=== PATIENT | male | born 1985 | race Hispanic/Latino ===

== ENCOUNTER 2018-10-19 11:06 | Emergency (ER) | payer OTHER ==
[2018-10-19 11:46] VITALS: BMI 29.7
[2018-10-19 11:47] VITALS: BP 114/76; PULSE 82; RESP 20; TEMP 97.9
--- NOTE | 2018-10-19 12:08 | ED PDOC ---
Lower Extremity Pain/Injury Time Seen by Provider: 10/19/18 11:32 Chief Complaint (Nursing): Lower Extremity Problem/Injury Chief Complaint (Provider): Lower Extremity Problem/Injury History Per: Patient Onset/Duration Of Symptoms: Days (3) Current Symptoms Are (Timing): Still Present Additional Complaint(s): 33 y/o male present to the ED complaining of left upper thigh pain since 3 days ago. Patient states he exercise a lot and drove for 2 hours then started feeling pain. He took over the counter medication with no relief. Patient has chronic back pain from hernia disc. 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 PMD: none provided Past Medical History Reviewed: Historical Data, Nursing Documentation, Vital Signs Vital Signs: Last Vital Signs Temp 97.9 F 10/19/18 11:46 Pulse 82 10/19/18 11:46 Resp 20 10/19/18 11:46 BP 114/76 10/19/18 11:46 Pulse Ox 98 10/19/18 11:46 - Medical History PMH: No Chronic Diseases - Surgical History Surgical History: No Surg Hx - Family History Family History: States: No Known Family Hx - Home Medications Home Medications: Ambulatory Orders Medication Instructions Recorded Cyclobenzaprine [Cyclobenzaprine 10 mg PO TID #15 tab 10/19/18 HCl] Naproxen 500 mg PO BID #20 tab 10/19/18 - Allergies Allergies/Adverse Reactions: Allergies Allergy/AdvReac Type Severity Reaction Status Date / Time No Known Allergies Allergy Verified 10/19/18 11:33 Review of Systems ROS Statement: Except As Marked, All Systems Reviewed And Found Negative Musculoskeletal: Positive for: Other (uopper left thigh pain ) Physical Exam - Reviewed Nursing Documentation Reviewed: Yes Vital Signs Reviewed: Yes - Physical Exam Appears: Positive for: Well, Non-toxic, No Acute Distress Head Exam: Positive for: ATRAUMATIC, NORMOCEPHALIC Skin: Positive for: Normal Color, Warm, Dry Eye Exam: Positive for: EOMI, Normal appearance, PERRL ENT: Positive for: Normal ENT Inspection Neck: Positive for: Normal, Painless ROM Cardiovascular/Chest: Positive for: Regular Rate, Rhythm. Negative for: Murmur Respiratory: Positive for: CNT, Normal Breath Sounds Gastrointestinal/Abdominal: Positive for: Normal Exam, Soft Back: Positive for: Normal Inspection, Other (point tenderness lower back ) Extremity: Positive for: Normal ROM, Other (No redness and no ecchymosis. ). Negative for: Tenderness, Deformity, Swelling Neurological/Psych: Positive for: Awake, Alert, Normal Tone, Oriented (x3). Negative for: Motor/Sensory Deficits - ECG O2 Sat by Pulse Oximetry: 98 - Progress Re-evaluation Time: 12:52 Condition: Re-examined, Improved Medical Decision Making Medical Decision Making: Time:1146 Initial Impression: Left thigh pain Initial Plan:Rule out DVT and muscle spasm. Pt will be refer to otherpedic and outpatient MRI. -US Scribe Attestation: Documented by Demetria Gerard, acting as a scribe for Rekha Prajapati. Provider Scribe Attestation: All medical record entries made by the Scribe were at my direction and personally dictated by me. I have reviewed the chart and agree that the record accurately reflects my personal performance of the history, physical exam, medical decision making, and the department course for this patient. I have also personally directed, reviewed, and agree with the discharge instructions and disposition. 1252 FINDINGS: 2-D, color and duplex Doppler analysis of the lower extremity venous circulation using routine protocol from the femoral veins through the popliteal veins. Venous compressibility: Normal. Flow and augmentation patterns: Normal. Visualized veins upper third of calf: Normal. Dominguez cyst: None. IMPRESSION: No sonographic or Doppler evidence for DVT in left lower extremity. Disposition - Clinical Impression Clinical Impression: Leg sprain - Patient ED Disposition Is Patient to be Admitted: No Doctor Will See Patient In The: Office Counseled Patient/Family Regarding: Studies Performed, Diagnosis, Need For Followup - Disposition Referrals: Jonn Bustamante MD [Staff Provider] - Disposition: Routine/Home Disposition Time: 12:54 Condition: GOOD Additional Instructions: Follow up with orthopedist for outpatient MRI within 1 week. REMINGTON DYER, thank you for letting us take care of you today. Your provider was Rekha Prajapati MD and you were treated for HIP PAIN. The emergency medical care you received today was directed at your acute symptoms. If you were prescribed any medication, please fill it and take as directed. It may take several days for your symptoms to resolve. Return to the Emergency Department if your symptoms worsen, do not improve, or if you have any other problems. Please contact your doctor or call one of the physicians/clinics you have been referred to that are listed on the Patient Visit Information form that is included in your discharge packet. Bring any paperwork you were given at discharge with you along with any medications you are taking to your follow up visit. Our treatment cannot replace ongoing medical care by a primary care provider outside of the emergency department. Thank you for allowing the [facility] team to be part of your care today. If you had an X-Ray or CT scan: A Radiologist will review the ED reading if any change in treatment is needed we will contact you. Prescriptions: Cyclobenzaprine [Cyclobenzaprine HCl] 10 mg PO TID #15 tab Naproxen 500 mg PO BID #20 tab Instructions: Muscle Strain (DC) Forms: [employer] ([place]ian), [facility] ED School/Work Excuse
--- NOTE | 2018-10-19 12:56 | US ---
Date of service: 10/19/2018 HISTORY: left leg pain. PRIORS: No prior study available for comparison FINDINGS: 2-D, color and duplex Doppler analysis of the lower extremity venous circulation using routine protocol from the femoral veins through the popliteal veins. Venous compressibility: Normal. Flow and augmentation patterns: Normal. Visualized veins upper third of calf: Normal. Dominguez cyst: None. IMPRESSION: No sonographic or Doppler evidence for DVT in left lower extremity.
[2018-10-19 13:36] VITALS: O2SAT 99
== END 2018-10-19 13:16 | disposition home or self-care (01) ==
LOC: H.ER 11:06
DX: S73.102A Unspecified sprain of left hip, initial encounter (principal); X58.XXXA Exposure to other specified factors, initial encounter